=== PATIENT | male | born 1990 | race American Indian/Alaskan Native ===

== ENCOUNTER 2016-07-04 02:50 | Emergency (ER) | payer SELFPAY ==
[2016-07-04] MEDS ORDERED: TYLENOL ONE (03:00)
[2016-07-04] MEDS ORDERED: TYLENOL PO ONE (03:07)
[2016-07-04] MEDS ORDERED: BACTRIM DS PO ONE (07:42)
[2016-07-04] MEDS ORDERED: KEFLEX PO ONE (07:42)
[2016-07-04] MEDS ORDERED: TRIPLE ANTIBIOTIC TP ONE (07:46)
[2016-07-04] MEDS ORDERED: TENIVAC IM ONE (07:46)
--- NOTE | 2016-07-04 07:49 | Emergency Department Report ---
- General Chief complaint: Skin/Abscess/Foreign Body Stated complaint: FACIAL SWELLING POSS ABCESS Time Seen by Provider: 07/04/16 07:28 Source: patient, family Mode of arrival: Ambulatory Limitations: No Limitations - History of Present Illness Initial comments: PT states he is here for a possible absces to his face x 2 days. PT states he noticed a hair bump after he shaved. PT states the swelling increased and he thought it would feel better if he squeezed it. PT states he drained some pus but swelling increased. MD complaint: abscess/boil Onset/Timin -: Gradual, days(s) Tetanus Up to Date: no Location: face Severity: severe Severity scale (0 -10): 10 Quality: other (pressure ) Consistency: constant Worsens with: palpation, movement Context: other (after shaving ) Associated symptoms: fever (subjective, felt warm yesterday ) Treatments Prior to Arrival: attempted to drain pus at - Related Data Previous Rx's Medication Instructions Recorded Last Taken Type Cephalexin [Keflex] 500 mg PO Q6HR 10 Days 07/04/16 Unknown Rx Ibuprofen [Motrin] 600 mg PO Q8H PRN #15 tablet 07/04/16 Unknown Rx Sulfamethoxazole/Trimethoprim 1 each PO BID #20 tablet 07/04/16 Unknown Rx [Bactrim DS TAB] traMADol [Ultram] 50 mg PO Q6HR PRN #12 tablet 07/04/16 Unknown Rx Allergies Allergy/AdvReac Type Severity Reaction Status Date / Time No Known Allergies Allergy Verified 07/04/16 03:04 Abscess Boil HPI - HPI Chief Complaint: Skin/Abscess/Foreign Body Stated Complaint: FACIAL SWELLING POSS ABCESS Time Seen by Provider: 07/04/16 07:28 Duration: 2 Days Location: Head Severity: Severe History: Yes Pain, Yes Purulent Drainage, No Foreign Body, No Previous History, No Insect Bite Home Medications: Previous Rx's Medication Instructions Recorded Last Taken Type Cephalexin [Keflex] 500 mg PO Q6HR 10 Days 07/04/16 Unknown Rx Ibuprofen [Motrin] 600 mg PO Q8H PRN #15 tablet 07/04/16 Unknown Rx Sulfamethoxazole/Trimethoprim 1 each PO BID #20 tablet 07/04/16 Unknown Rx [Bactrim DS TAB] traMADol [Ultram] 50 mg PO Q6HR PRN #12 tablet 07/04/16 Unknown Rx Allergies/Adverse Reactions: Allergies Allergy/AdvReac Type Severity Reaction Status Date / Time No Known Allergies Allergy Verified 07/04/16 03:04 ED Review of Systems ROS: Stated complaint: FACIAL SWELLING POSS ABCESS Other details as noted in HPI Comment: All other systems reviewed and negative Constitutional: fever (possible- subjective ). denies: chills ENT: denies: dental pain Gastrointestinal: denies: nausea, vomiting Skin: as per HPI, change in color ED Past Medical Hx - Past Medical History Previous Medical History?: No - Surgical History Past Surgical History?: No - Social History Smoking Status: Never Smoker Substance Use Type: None - Medications Home Medications: Home Medications Medication Instructions Recorded Confirmed Last Taken Type Cephalexin [Keflex] 500 mg PO Q6HR 10 Days 07/04/16 Unknown Rx Ibuprofen [Motrin] 600 mg PO Q8H PRN #15 tablet 07/04/16 Unknown Rx Sulfamethoxazole/Trimethoprim 1 each PO BID #20 tablet 07/04/16 Unknown Rx [Bactrim DS TAB] traMADol [Ultram] 50 mg PO Q6HR PRN #12 tablet 07/04/16 Unknown Rx ED Physical Exam - General Limitations: No Limitations General appearance: alert, in no apparent distress - Head Head exam: Present: atraumatic, normocephalic, other (2.5 cm firm abscess to L manible. area of broken skin with small amount of drainage. ) - Eye Eye exam: Present: normal appearance. Absent: conjunctival injection - ENT ENT exam: Present: normal exam, normal orophraynx, mucous membranes moist, TM's normal bilaterally, normal external ear exam - Neck Neck exam: Present: normal inspection. Absent: tenderness, lymphadenopathy - Respiratory Respiratory exam: Present: normal lung sounds bilaterally. Absent: respiratory distress, chest wall tenderness - Cardiovascular Cardiovascular Exam: Present: regular rate, normal rhythm, normal heart sounds - Rectal Rectal exam: Present: deferred - Back Exam Back exam: Present: normal inspection, full ROM - Neurological Exam Neurological exam: Present: alert, oriented X3 - Psychiatric Psychiatric exam: Present: normal affect, normal mood - Skin Skin exam: Present: warm, dry, erythema (to abscess ) ED Course Vital Signs 07/04/16 02:51 Temperature 98.1 F Pulse Rate 87 Respiratory 18 Rate Blood Pressure 128/88 [Right] O2 Sat by Pulse 100 Oximetry - Reevaluation(s) Reevaluation #1: 07/04/16 07:50 PT with firm facial abscess. PT tried to drain at home, area is open. No need to do I and D while pt in ED. PT advised strict antibiotic compliance, no smoking, warm compresses and close follow up. Will up date pt's TD vaccine. - Pulse Oximetry Interpretation Digit-Finger Initial Pulse Oximetry Readin Actions Taken: none ED Medical Decision Making - Differential Diagnosis abscess, cellulitis Critical care attestation.: If time is entered above; I have spent that time in minutes in the direct care of this critically ill patient, excluding procedure time. ED Disposition Clinical Impression: Acute abscess of face Disposition: DISCHARGED TO HOME OR SELFCARE Is pt being admited?: No Does the pt Need Aspirin: No Condition: Stable Instructions: Abscess (ED), Methicillin Resistant Staphylococcus Aureus (ED) Additional Instructions: No shaving Throw out your razor Follow up for recheck in 48 hours, if worsening or concerns, return to the ED sooner. No driving or ETOH after taking Ultram Prescriptions: Cephalexin [Keflex] 500 mg PO Q6HR 10 Days Ibuprofen [Motrin] 600 mg PO Q8H PRN #15 tablet PRN Reason: Pain Sulfamethoxazole/Trimethoprim [Bactrim DS TAB] 1 each PO BID #20 tablet traMADol [Ultram] 50 mg PO Q6HR PRN #12 tablet PRN Reason: Pain Referrals: PRIMARY CARE, [Primary Care Provider] - 3-5 Days Time of Disposition: 07:52
[2016-07-04] MEDS ORDERED: BOOSTRIX IM ONE ×2 (07:51→08:13)
[2016-07-04 08:33] VITALS: BP 125/76
[2016-07-05] MEDS ORDERED: BOOSTRIX IM ONE (09:00)
== END 2016-07-04 08:25 | disposition home or self-care (01) ==
LOC: ED 02:50
DX: L02.01 Cutaneous abscess of face (principal)
CPT/HCPCS: 90471; 90715; 99282; A6250

== ENCOUNTER 2021-03-31 07:33 | Emergency (ER) | payer SELFPAY ==
--- NOTE | 2021-03-31 07:52 | Emergency Department Report ---
HPI - General Chief Complaint: Medical Clearance Time Seen by Provider: 03/31/21 07:35 - HPI HPI: This is a 30-year-old -[place] male who presented to the emergency department via EMS for a mental health evaluation. However the patient denies having any psychiatric conditions and does not want to be seen for a mental health evaluation or for any other concerns/complaints. The patient says that he has been trying to get his own apartment as he lives with his mother. He continually says that he has been asking her for help, although he claims to have saved up enough money for 2 months of rent and "emergency funds", but needs a cosigner. He said that this morning he was having a another conversation with his mother regarding "getting help" to move out into an apartment but "she would not say anything." The patient admits that he got frustrated and upset and that he was seen punching a wall and kicking a door. Patient denies any suicidal or homicidal ideations. He denies any auditory or visual hallucinations. Patient denies getting aggressive towards his mother. ED Past Medical Hx - Social History Smoking Status: Never Smoker Substance Use Type: None - Medications Home Medications: Home Medications Medication Instructions Recorded Confirmed Last Taken Type Ibuprofen [Motrin] 600 mg PO Q8H PRN #15 tablet 07/04/16 Unknown Rx Sulfamethoxazole/Trimethoprim 1 each PO BID #20 tablet 07/04/16 Unknown Rx [Bactrim DS TAB] cephALEXin [Keflex] 500 mg PO Q6HR 10 Days capsule 07/04/16 Unknown Rx traMADoL [Ultram] 50 mg PO Q6HR PRN #12 tablet 07/04/16 Unknown Rx ED Review of Systems ROS: Stated complaint: REFUSED Other details as noted in HPI Comment: All other systems reviewed and negative Musculoskeletal: denies: joint swelling, arthralgia Psychiatric: denies: auditory hallucinations, visual hallucinations, homicidal thoughts, suicidal thoughts Physical Exam - Physical Exam Physical Exam: GENERAL: The patient is well-developed well-nourished. HENT: Normocephalic. Atraumatic. Patient has moist mucous membranes. EYES: Extraocular motions are intact. NECK: Supple. Trachea is midline. CHEST/LUNGS: Clear to auscultation. There is no respiratory distress noted. HEART/CARDIOVASCULAR: Regular. There is no tachycardia. There is no murmur. ABDOMEN: Abdomen is soft, nontender. Patient has normal bowel sounds. SKIN: Skin is warm and dry. NEURO: The patient is awake, alert, and oriented. Normal speech. MUSCULOSKELETAL: There is no obvious deformity. There is no limitation range of motion. ED Medical Decision Making - Medical Decision Making This patient came by ambulance for a mental health evaluation. The patient is refusing vital signs and refusing to be seen for a mental health evaluation claiming that he does not need it. He says that his mother called for EMS and PD. Patient says that the only reason that he agreed to go on the ambulance to the emergency department was because PD said that he could choose to come to the emergency department or go to nursing home. However there are no police officers present, no report was provided by PD and the patient is not in custody. The patient does not appear to meet criteria to be made a 1013 as he does not have any suicidal or homicidal ideations, does not appear to be responding to internal stimuli, and is not showing signs of acute psychosis. At the time of my examination the patient is awake, alert, oriented, appropriate, and has a normal decision-making capacity. Also, there is no report from PD that the patient has acted irrationally or showed concerns for psychosis. Therefore I cannot keep this patient involuntarily. However, I did explain to the patient that he is living with his mother and I assume he is not paying for the rent or mortgage. Therefore, he should be abiding by any of his mother's rules. Any destruction or damage to property in that house, or if his mother has any concerns or does not feel safe, then she has any right to ask him to move out or leave the home. The patient was told that he can return to the emergency department if he changes his mind about evaluation or with any acute distress. Critical Care Time: No Critical care attestation.: If time is entered above; I have spent that time in minutes in the direct care of this critically ill patient, excluding procedure time. ED Disposition Clinical Impression: Medical clearance for psychiatric admission Disposition: 07 LEFT AWOL/ELOPED Is pt being admited?: No
== END 2021-03-31 08:57 | disposition left against medical advice (07) ==
LOC: ED 07:33
DX: Z04.6 Encounter for general psychiatric examination, requested by authority (principal)
CPT/HCPCS: 99282

== ENCOUNTER 2021-03-31 16:02 | Emergency (ER) | payer SELFPAY ==
[2021-03-31] MEDS ORDERED: HALOPERIDOL LACTATE 5 MG/1 ML INJ IM PRN (20:18)
[2021-03-31] MEDS ORDERED: LORazepam 2 MG/ML VIAL IM PRN (20:18)
--- NOTE | 2021-03-31 20:20 | Emergency Department Report ---
<YNI MOULTON - Last Filed: 03/31/21 21:16> ED General Adult HPI - General Chief complaint: Psych Stated complaint: Depression and suicidal PUI?: No Time Seen by Provider: 03/31/21 20:17 Source: patient, EMS ( EMS documentation not available at time of chart dictation ), RN notes reviewed, old records reviewed Mode of arrival: Ambulatory Limitations: No Limitations - History of Present Illness Initial comments: The patient is a 30-year-old gentleman, who recreationally consumes marijuana, who denies chronic medical conditions, who is not known to myself previously, who is also reportedly homeless. He presents to the ER today with a complaint of painless depression and suicidality. He denies hallucinations, overdose, access to guns and firearms, and physical pain. At this point in time, he states his symptoms are constant, painless, do not radiate anywhere, and to the best of his knowledge of recollection, do not have exacerbating relieving factors. He has not been psychiatrically hospitalized in the past that he is aware of. -: Gradual Consistency: constant Improves with: none Worsens with: none Associated Symptoms: denies other symptoms - Related Data Previous Rx's Medication Instructions Recorded Last Taken Type Ibuprofen [Motrin] 600 mg PO Q8H PRN #15 tablet 07/04/16 Unknown Rx Sulfamethoxazole/Trimethoprim 1 each PO BID #20 tablet 07/04/16 Unknown Rx [Bactrim DS TAB] cephALEXin [Keflex] 500 mg PO Q6HR 10 Days capsule 07/04/16 Unknown Rx traMADoL [Ultram] 50 mg PO Q6HR PRN #12 tablet 07/04/16 Unknown Rx Sertraline [Zoloft] 25 mg PO QDAY #30 tab 04/01/21 Unknown Rx Allergies Allergy/AdvReac Type Severity Reaction Status Date / Time No Known Allergies Allergy Verified 03/31/21 20:04 ED Review of Systems Comment: All other systems reviewed and negative Psychiatric: depression, suicidal thoughts ED Past Medical Hx - Social History Smoking Status: Never Smoker Substance Use Type: None - Medications Home Medications: Home Medications Medication Instructions Recorded Confirmed Last Taken Type Ibuprofen [Motrin] 600 mg PO Q8H PRN #15 tablet 07/04/16 Unknown Rx Sulfamethoxazole/Trimethoprim 1 each PO BID #20 tablet 07/04/16 Unknown Rx [Bactrim DS TAB] cephALEXin [Keflex] 500 mg PO Q6HR 10 Days capsule 07/04/16 Unknown Rx traMADoL [Ultram] 50 mg PO Q6HR PRN #12 tablet 07/04/16 Unknown Rx Sertraline [Zoloft] 25 mg PO QDAY #30 tab 04/01/21 Unknown Rx ED Physical Exam - General Limitations: No Limitations General appearance: alert, in no apparent distress - Head Head exam: Present: atraumatic, normocephalic - Eye Eye exam: Present: normal appearance, EOMI. Absent: nystagmus - ENT ENT exam: Present: normal exam, normal orophraynx, mucous membranes moist, normal external ear exam - Neck Neck exam: Present: normal inspection, full ROM. Absent: tenderness, meningismus - Respiratory Respiratory exam: Present: normal lung sounds bilaterally. Absent: respiratory distress, wheezes, rales, rhonchi, stridor, decreased breath sounds - Cardiovascular Cardiovascular Exam: Present: regular rate, normal rhythm, normal heart sounds. Absent: bradycardia, tachycardia, irregular rhythm, systolic murmur, diastolic murmur, rubs, gallop - GI/Abdominal GI/Abdominal exam: Present: soft, normal bowel sounds. Absent: distended, tenderness, guarding, rebound, rigid - Rectal Rectal exam: Present: deferred - Extremities Exam Extremities exam: Present: normal inspection, full ROM, other (2+ pulses noted in the bilateral upper and lower extremities. There is no palpable cord. negative Homans sign. Muscular compartments are soft. The pelvis is stable.). Absent: pedal edema, calf tenderness - Back Exam Back exam: Present: normal inspection. Absent: tenderness, CVA tenderness (R), CVA tenderness (L), paraspinal tenderness, vertebral tenderness - Neurological Exam Neurological exam: Present: alert, oriented X3, normal gait, other (No facial droop. Tongue midline. Extraocular movements intact bilaterally. Facial sensation intact to light touch in V1, V2, V3 distribution bilaterally. 5 and a 5 strength in 4 extremities. Sensation intact to light touch in 4 extremities. ). Absent: motor sensory deficit - Psychiatric Psychiatric exam: Present: depressed, flat affect, suicidal ideation - Skin Skin exam: Present: warm, dry, intact, normal color. Absent: rash ED Medical Decision Making - Lab Data Result diagrams: 03/31/21 20:22 03/31/21 20:22 Vital Signs 03/31/21 03/31/21 20:03 20:45 Temperature 98.9 F 98.2 F Pulse Rate 82 103 H Respiratory 18 18 Rate Blood Pressure 132/74 127/85 [Left] O2 Sat by Pulse 98 98 Oximetry Lab Results 03/31/21 03/31/21 03/31/21 Range/Units 20:22 20:22 20:22 WBC 5.6 (4.5-11.0) K/mm3 RBC 4.46 (3.65-5.03) M/mm3 Hgb 14.4 (11.8-15.2) gm/dl Hct 43.8 (35.5-45.6) % MCV 98 H (84-94) fl MCH 32 (28-32) pg MCHC 33 (32-34) % RDW 12.2 L (13.2-15.2) % Plt Count 167 (140-440) K/mm3 Lymph % (Auto) 33.3 (13.4-35.0) % Harris % (Auto) 8.9 H (0.0-7.3) % Eos % (Auto) 0.0 (0.0-4.3) % Baso % (Auto) 0.4 (0.0-1.8) % Lymph # (Auto) 1.9 (1.2-5.4) K/mm3 Harris # (Auto) 0.5 (0.0-0.8) K/mm3 Eos # (Auto) 0.0 (0.0-0.4) K/mm3 Baso # (Auto) 0.0 (0.0-0.1) K/mm3 Seg Neutrophils % 57.4 (40.0-70.0) % Seg Neutrophils # 3.2 (1.8-7.7) K/mm3 Sodium 137 (137-145) mmol/L Potassium 3.7 (3.6-5.0) mmol/L Chloride 101.3 (98-107) mmol/L Carbon Dioxide 20 L (22-30) mmol/L Anion Gap 19 mmol/L BUN 16 (9-20) mg/dL Creatinine 0.7 L (0.8-1.3) mg/dL Estimated GFR > 60 ml/min BUN/Creatinine Ratio 23 % Glucose 114 H (75-100) mg/dL Calcium 9.2 (8.4-10.2) mg/dL Salicylates < 0.3 L (2.8-20.0) mg/dL Acetaminophen (10.0-30.0) ug/mL Plasma/Serum Alcohol (0-0.07) % 03/31/21 03/31/21 Range/Units 20:22 20:22 WBC (4.5-11.0) K/mm3 RBC (3.65-5.03) M/mm3 Hgb (11.8-15.2) gm/dl Hct (35.5-45.6) % MCV (84-94) fl MCH (28-32) pg MCHC (32-34) % RDW (13.2-15.2) % Plt Count (140-440) K/mm3 Lymph % (Auto) (13.4-35.0) % Harris % (Auto) (0.0-7.3) % Eos % (Auto) (0.0-4.3) % Baso % (Auto) (0.0-1.8) % Lymph # (Auto) (1.2-5.4) K/mm3 Harris # (Auto) (0.0-0.8) K/mm3 Eos # (Auto) (0.0-0.4) K/mm3 Baso # (Auto) (0.0-0.1) K/mm3 Seg Neutrophils % (40.0-70.0) % Seg Neutrophils # (1.8-7.7) K/mm3 Sodium (137-145) mmol/L Potassium (3.6-5.0) mmol/L Chloride (98-107) mmol/L Carbon Dioxide (22-30) mmol/L Anion Gap mmol/L BUN (9-20) mg/dL Creatinine (0.8-1.3) mg/dL Estimated GFR ml/min BUN/Creatinine Ratio % Glucose (75-100) mg/dL Calcium (8.4-10.2) mg/dL Salicylates (2.8-20.0) mg/dL Acetaminophen 5.0 L (10.0-30.0) ug/mL Plasma/Serum Alcohol < 0.01 (0-0.07) % - Medical Decision Making Differential diagnosis, including but not limited to: Depression, dysthymia, medical clearance for psychiatric placement Assessment and plan: 30-year-old gentleman, who was afebrile, with reassuring vital signs, who is clinically sober with a GCS of 15, who presents to the ER today with complaint of painless suicidality, and depression. Suspect multiple factors, including homelessness, drug use, Given complaint of suicidality and depression, as well as helplessness, patient placed on 1013 status. Laboratory studies unremarkable. Urinalysis, urine drug screen pending. Patient denied irritative and obstructive urinary symptoms to myself. Covid swab ordered in anticipation of possible placement. Holding orders initiated. At this point in time, this patient does not appear to have an immediate medical contraindication to psychiatric admission, evaluation, consultation and placement. The ER will follow along as the patient provides his urine sample. ED Disposition Clinical Impression: Medical clearance for psychiatric admission Disposition: [address] [place] [address] Is pt being admited?: No Does the pt Need Aspirin: No Condition: Good Instructions: Major Depressive Disorder, Adult, [id number] Additional Instructions: Professional and Agency Contacts To help Resolve Crises(16/11) [place] Crisis Line: Suicide Prevention Line: Crisis Text Line: Text START to 143053 Emergency: 911 Outpatient COMMUNITY Behavioral Health Resources: JON[facility]: [facility] [address] [place], [place] [address] [facility] [address] [place] [address] [place]: [facility] - [address] [place] [address] Wednesday thru Wednesday - 8am - 5pm VENDOR: [facility] Service Address: [address], [place] [address] [facility] Address: [address] [place] [address] Wednesday thru Wednesday- 7am-2pm [facility] Address: [address] [place] [address] Wednesday thru Mike: 8:30AM-5PM OUTPATIENT MENTAL HEALTH RESOURCES [facility], [facility] José Antonio Alex LINDER: [address] [place] [address] [place] [address] [facility]: [facility] [address] [place] [address] [place] [address] [phone] [facility]: [facility] Healthcare: [address] [facility] [address] [place] [address] [facility] [id number] [facility]: Allan Reaves MD: [address] [facility] [address] [facility] [id number] [facility]: [address] [address] [place], [place] [id number] [phone] [place] CRISIS AND ACCESS LINE: Prescriptions: Sertraline [Zoloft] 25 mg PO QDAY #30 tab Referrals: PRIMARY CARE, [Primary Care Provider] - 3-5 Days <NUBIA KERR - Last Filed: 04/01/21 19:21> ED Review of Systems ROS: Stated complaint: Depression and suicidal Other details as noted in HPI ED Course Vital Signs 03/31/21 03/31/21 04/01/21 20:03 20:45 02:34 Temperature 98.9 F 98.2 F Pulse Rate 82 103 H 102 H Respiratory 18 18 18 Rate Blood Pressure 132/74 127/85 145/93 [Left] O2 Sat by Pulse 98 98 98 Oximetry 04/01/21 04/01/21 08:16 11:39 Temperature 98.5 F Pulse Rate 72 Respiratory 18 Rate Blood Pressure 101/58 [Left] O2 Sat by Pulse 98 98 Oximetry - Reevaluation(s) Reevaluation #1: 04/01/21 12:19 Patient has been seen by our psychiatric team today and advised to discharge patient to follow-up as an outpatient. Patient denied any suicidal or homicidal ideation. No visual or auditory hallucination. Patient is medically and psychiatrically stable for discharge. ED Medical Decision Making - Lab Data Result diagrams: 03/31/21 20:22 03/31/21 20:22 Critical care attestation.: If time is entered above; I have spent that time in minutes in the direct care of this critically ill patient, excluding procedure time.
[2021-03-31 20:51] LABS: Blood Urea Nitrogen 16 mg/dL (9-20); Calcium 9.2 mg/dL (8.4-10.2); Hemolysis Index 9
[2021-03-31 20:54] LABS: BUN/Creatinine Ratio 23
[2021-03-31 21:05] LABS: Basophils % (Auto) 0.4 % (0.0-1.8); Hematocrit 43.8 % (35.5-45.6); Hemoglobin 14.4 gm/dl (11.8-15.2); Lymphocytes # (Auto) 1.9 K/mm3 (1.2-5.4); Lymphocytes % (Auto) 33.3 % (13.4-35.0); Mean Corpuscular HGB Conc 33 % (32-34); Mean Corpuscular Volume 98 fl (84-94); Monocytes # (Auto) 0.5 K/mm3 (0.0-0.8); Monocytes % (Auto) 8.9 % (0.0-7.3); Platelet Count 167 K/mm3 (140-440); Red Blood Count 4.46 M/mm3 (3.65-5.03); Red Cell Distribution Width 12.2 % (13.2-15.2)
[2021-03-31] MEDS ORDERED: ONDANSETRON 4 MG ODT TAB PO PRN (21:15)
[2021-03-31] MEDS ORDERED: diphenhydrAMINE 25 MG CAP PO PRN (21:15)
[2021-03-31] MEDS ORDERED: ACETAMINOPHEN 325 MG TAB PO PRN (21:15)
--- NOTE | 2021-04-01 10:24 | Consultation ---
History of Present Illness - Reason for Consult Consult date: 04/01/21 Reason for consult: depression - History of Present Psychiatric Illness The patient was seen today. He is calm, cooperative and polite. He reports feeling depressed because he can't find a job. The patient denies SI/HI or any feeling of endangerment. He denies any hallucinations. The patient says he has a good support system with his mom and spouse. 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 The patient was optimist about his future. He says "the sooner I can get out of here I can look at [employer] and look into getting my CDL." The patient denies any psych history, admissions, or psych meds. He denies any illicit drug use or alcohol. I also discussed with the patient benefits and possible side effects of starting an antidepressant, and also starting therapy. He was in agreement with plan. PAST PSYCHIATRIC HISTORY Diagnoses: Denies Suicide attempts or Self-harm behavior: Denies Prior psychiatric hospitalizations: Denies Substance Abuse history: Patient denies Previous psychiatric medications tried: Denies Outpatient treatment: Denies PAST MEDICAL HISTORY: Family Psychiatric History: Not available SOCIAL HISTORY Marital Status: Single Living Arrangements: Lives alone Employment Status: Disabled Access to guns/weapons: None reported Education: 10th grade dropped out History of Abuse: None reported Legal History: None reported REVIEW OF SYSTEMS Constitutional: Negative for weight loss ENT: Negative for stridor Respiratory: Negative for cough or hemoptysis All other systems reviewed and are negative MENTAL STATUS EXAMINATION General Appearance and Behavior: Age appropriate, good hygiene, wearing appropriate clothes, good eye contact, cooperative polite with questioning. Cooperation: Participating/engaged Psychomotor Behavior: unremarkable and within normal limits Mood: depressed Affect and affective range: congruent with mood Thought Process: Goal directed Thought Content: optimistic Speech: Normal volume, Regular rate and rhythm Suicidal Ideation: Denies Homicidal Ideation: Denies Hallucinations: Denies Impulse Control: None elicited Insight and Judgment: Normal insight and judgment Memory: Normal Attention: attentive Orientation: Alert, oriented Assessment and Plan (1) Major Depressive Disorder RECOMMENDATIONS d/c 1013 Zoloft 25mg po daily Risks, benefits and alternatives of medications discussed with the patient, questions answered and consent obtained from patient. PSYCHOTHERAPY: Supportive psychotherapy provided MEDICAL: Per primary team DELIRIUM PRECAUTIONS: Please re-orient patient frequently, keep lights on during the day, and minimize benzodiazepines and opiates as these medications could worsen patient's confusion. SENIOR COMPUTER SPECIALIST: Per medical team DISPOSITION: Do not recommend acute inpatient psychiatric hospitalization at this time. FOLLOW-UP: Will sign off. Thanks Thank you for the consult. Please contact with any questions and/or concerns. Case staffed with Dr. Lewis Medications and Allergies Allergies Allergy/AdvReac Type Severity Reaction Status Date / Time No Known Allergies Allergy Verified 03/31/21 20:04 Home Medications Medication Instructions Recorded Confirmed Last Taken Type Ibuprofen [Motrin] 600 mg PO Q8H PRN #15 tablet 07/04/16 Unknown Rx Sulfamethoxazole/Trimethoprim 1 each PO BID #20 tablet 07/04/16 Unknown Rx [Bactrim DS TAB] cephALEXin [Keflex] 500 mg PO Q6HR 10 Days capsule 07/04/16 Unknown Rx traMADoL [Ultram] 50 mg PO Q6HR PRN #12 tablet 07/04/16 Unknown Rx Sertraline [Zoloft] 25 mg PO QDAY #30 tab 04/01/21 Unknown Rx Active Meds: Active Medications Acetaminophen (Acetaminophen 325 Mg Tab) 650 mg PO Q6HR PRN PRN Reason: PAIN Diphenhydramine HCl (Diphenhydramine 25 Mg Cap) 50 mg PO QHS PRN PRN Reason: Insomnia Haloperidol Lactate (Haloperidol Lactate 5 Mg/1 Ml Inj) 5 mg IM Q6HR PRN PRN Reason: Agitation Last Admin: 04/01/21 02:05 Dose: 5 mg Documented by: Lorazepam (Lorazepam 2 Mg/Ml Vial) 2 mg IM Q4HR PRN PRN Reason: Agitation Ondansetron HCl (Ondansetron 4 Mg Odt Tab) 4 mg PO Q6HR PRN PRN Reason: Nausea Mental Status Exam - Vital signs Last Vital Signs Temp 98.2 F 03/31/21 20:45 Pulse 102 H 04/01/21 02:34 Resp 18 04/01/21 02:34 BP 145/93 04/01/21 02:34 Pulse Ox 98 04/01/21 08:16 Results Result Diagrams: 03/31/21 20:22 03/31/21 20:22 Abnormal lab results 03/31/21 03/31/21 03/31/21 Range/Units 20:22 20:22 20:22 MCV 98 H (84-94) fl RDW 12.2 L (13.2-15.2) % [place] % (Auto) 8.9 H (0.0-7.3) % Carbon Dioxide 20 L (22-30) mmol/L Creatinine 0.7 L (0.8-1.3) mg/dL Glucose 114 H (75-100) mg/dL Salicylates < 0.3 L (2.8-20.0) mg/dL Acetaminophen (10.0-30.0) ug/mL 03/31/21 Range/Units 20:22 MCV (84-94) fl RDW (13.2-15.2) % [place] % (Auto) (0.0-7.3) % Carbon Dioxide (22-30) mmol/L Creatinine (0.8-1.3) mg/dL Glucose (75-100) mg/dL Salicylates (2.8-20.0) mg/dL Acetaminophen 5.0 L (10.0-30.0) ug/mL All other labs normal.
[2021-04-01 11:40] VITALS: BP 101/58
== END 2021-04-01 12:38 ==
LOC: ED 16:02
DX: Z00.8 Encounter for other general examination (principal); Z79.899 Other long term (current) drug therapy; Z20.822 Contact with and (suspected) exposure to COVID-19
CPT/HCPCS: 36415; 80048; 85025; 96372; 99284; J1630; U0003; 80320; G0480